=== PATIENT | female | born 1955 | race Caucasian/White ===

== ENCOUNTER → 2016-06-22 | Outpatient (CLI) | payer MEDICARE, OTHER ==
[~2016-06-22] MED LIST: ADVAIR 500/28 DISKU1 IH; ADVAIR DISKUS 51 DSK INH; ALBUTEROL0.09 MG/A4 IH; ANTIVERT PO; ASPIRIN E.C. 8181 M1 PO; CEFTIN250 M1 PO; CEFTIN500 MG PO; COUMADIN 5MG5 MG/TAB PO; CYCLOBENZAPRINE10 M2 PO; DIAZEPAM5 MG PO; FLOVENT DI50 MCG/Act IH; GOOD SENSE ASPI81 M1 PO; GUAIFEN AC 10120 ML PO; IBU-TAB800 MG PO; IBUPROFEN800 MG PO; IPRATROPIUM BROM3 M1 IH; LASIX40 MG PO; MIACALCIN NASA3.7 ML NS; MICRO-K 1010 MEQ PO; MIRALAX PA17 GM/Dose PO; MOTRIN 800800 MG/TAB PO; MUCINEX DM 30 M1 TE1 PO; NEXIUM40 MG PO; NITROGLYCERIN0.4 M1 SL; ONDANSETRON HYDR4 M1 PO; ONDANSETRON4 M1 PO; PERCOCET 325 MG1 TA2 PO; PERFOROMIS20 MCG/2 M IH; PHENERGAN W/CO120 M1 PO; PREDNISONE10 M1; PREDNISONE10 M1 PO; PREDNISONE20 M1 PO; PROAIR RESPICL90 MCG IH; PROVENTIL0.09 MG/Ac INH; PULMICORT R1 MG/2 ML IH; SINGULAIR10 MG PO; SPIRIVA HANDIH18 MCG IH; SPIRIVA INH IH; TESSALON P100 MG/CAP PO; TYLENOL WITH CO1 TA1 PO; VERAPAMIL HCL240 MG PO; VIBRAMYCIN100 MG PO; WELLBUTRIN PO; WELLBUTRIN SR150 MG PO; ZOCOR20 MG PO; ZOFRAN ODT4 MG PO; ZYRTEC10 M3 PO
== END ==
LOC: LAB 12:21
DX: I48.91 Unspecified atrial fibrillation (principal)

== ENCOUNTER → 2016-09-22 | Outpatient (CLI) | payer MEDICARE, OTHER ==
[2016-04-19 00:20] VITALS: BP 121/75
== END ==
LOC: LAB 13:44
DX: Z51.81 Encounter for therapeutic drug level monitoring (principal); Z79.01 Long term (current) use of anticoagulants; I48.0 Paroxysmal atrial fibrillation; E87.6 Hypokalemia

== ENCOUNTER → 2016-11-03 | Outpatient (CLI) | payer MEDICARE, OTHER ==
[2016-04-19 00:20] VITALS: BP 121/75
== END ==
LOC: RAD 15:26
DX: M54.6 Pain in thoracic spine (principal)

== ENCOUNTER → 2016-12-01 | Outpatient (CLI) | payer MEDICARE, OTHER ==
[2016-04-19 00:20] VITALS: BP 121/75
== END ==
LOC: LAB 14:04
DX: Z51.81 Encounter for therapeutic drug level monitoring (principal); Z79.01 Long term (current) use of anticoagulants; I48.0 Paroxysmal atrial fibrillation

== ENCOUNTER 2017-02-01 17:20 | Emergency (ER) | payer MEDICARE, OTHER ==
[~2017-02-01] VITALS: Ht 172.7 cm; Wt 67.7 kg
[~2017-02-01 17:20] MED LIST changes: -VERAPAMIL HCL240 MG PO; +VERAPAMIL180 MG/TAB PO
[2017-02-01] MEDS ORDERED: PERFOROMIS20 MCG/2 M IH (19:00)
[2017-02-01] MEDS ORDERED: NEURONTIN300 M1 PO (19:01)
[2017-02-01] MEDS ORDERED: PRILOSEC 20MG20 MG PO (19:01)
[2017-02-01] MEDS ORDERED: LEVAQUIN 750MG750 M1 PO (21:09)
[2017-02-01] MEDS ORDERED: FLAGYL500 M1 PO (21:09)
[2017-02-01] MEDS ORDERED: NORCO 325 MG-51 TA1 PO (21:10)
[2017-02-01] MEDS ORDERED: ZOFRAN4 M2 PO (21:26)
[2017-02-01 21:46] VITALS: BP 137/89
== END 2017-02-01 21:46 | disposition home or self-care (01) ==
LOC: ED 17:20
DX: K52.9 Noninfective gastroenteritis and colitis, unspecified (principal); I48.91 Unspecified atrial fibrillation; Z79.01 Long term (current) use of anticoagulants; F17.200 Nicotine dependence, unspecified, uncomplicated; R06.2 Wheezing; R00.0 Tachycardia, unspecified
CPT/HCPCS: A4353; J2405; J3010; J7030

== ENCOUNTER → 2017-02-14 | Outpatient (CLI) | payer MEDICARE, OTHER ==
[~2017-02-14] VITALS: Ht 172.7 cm; Wt 67.7 kg
[~2017-02-14] MED LIST changes: +FLAGYL500 M1 PO; +LEVAQUIN 750MG750 M1 PO; +NEURONTIN300 M1 PO; +NORCO 325 MG-51 TA1 PO; +PRILOSEC 20MG20 MG PO; +ZOFRAN4 M2 PO
[2017-02-14 15:10] LABS: HEMATOCRIT 42.7 % (37.0-47.0); HEMOGLOBIN 14.1 g/dL (12.5-16.0); RED BLOOD COUNT 4.96 M/mm3 (4.10-5.30); RED CELL DISTRIBUTION WIDTH 14.3 % (11.5-14.5); WHITE BLOOD COUNT 11.2 K/mm3 (4.8-10.8)
[2017-02-14 15:12] VITALS: BP 106/64
[2017-02-14 17:02] VITALS: BP 94/59
== END ==
LOC: AMSURD 14:45
PROVIDERS: Nurse Practitioner Family
DX: R11.0 Nausea (principal); K59.00 Constipation, unspecified; Z87.19 Personal history of other diseases of the digestive system
CPT/HCPCS: J2765; J7030

== ENCOUNTER → 2017-04-07 | Outpatient (CLI) | payer MEDICARE, OTHER ==
[2017-02-14 17:02] VITALS: BP 94/59
[2017-04-07 14:19] LABS: PROTHROMBIN TIME 15.9 SECONDS (9.0-12.0)
== END ==
LOC: LAB 13:47
PROVIDERS: Nurse Practitioner Family
DX: I48.0 Paroxysmal atrial fibrillation (principal)

== ENCOUNTER → 2017-04-19 | Outpatient (CLI) | payer MEDICARE, OTHER ==
[2017-02-14 17:02] VITALS: BP 94/59
[2017-04-19 17:07] LABS: PROTHROMBIN TIME 46.1 SECONDS (9.0-12.0)
== END ==
LOC: LAB 15:19
PROVIDERS: Nurse Practitioner Family
DX: I48.0 Paroxysmal atrial fibrillation (principal); Z88.0 Allergy status to penicillin; Z88.2 Allergy status to sulfonamides

== ENCOUNTER → 2017-06-07 | Outpatient (CLI) | payer MEDICARE, OTHER ==
[~2017-06-07] VITALS: Ht 172.7 cm; Wt 56.8 kg
[2017-06-07 15:15] VITALS: BP 134/79
[2017-06-07 16:02] VITALS: BP 132/86
[2017-06-07 16:15] VITALS: BP 124/82
[2017-06-07 16:28] LABS: ALBUMIN 3.9 g/dL (3.5-5.0); BUN/CREATININE RATIO 15.8 (6.0-26.0); CALCIUM 9.4 mg/dL (8.4-10.2); TOTAL BILIRUBIN 0.7 mg/dL (0.2-1.3); TOTAL PROTEIN 6.9 g/dL (6.3-8.2)
[2017-06-07 16:31] LABS: HEMATOCRIT 47.3 % (37.0-47.0); HEMOGLOBIN 15.2 g/dL (12.5-16.0); MEAN PLATELET VOLUME 10.3 fl (7.4-10.4); RED BLOOD COUNT 5.43 M/mm3 (4.10-5.30); WHITE BLOOD COUNT 9.5 K/mm3 (4.8-10.8)
[2017-06-07 16:54] LABS: POTASSIUM 2.9 mmol/L (3.6-5.0)
[2017-06-07 17:00] VITALS: BP 123/82
[2017-06-07 17:30] VITALS: BP 126/79
[2017-06-07 20:15] LABS: PROTHROMBIN TIME 40.5 SECONDS (9.0-12.0)
[2017-06-07 21:11] LABS: PH-URINE 5.5 (5.0 - 8.0); URINE APPEARANCE HAZY; URINE BILIRUBIN NEGATIVE (NEGATIVE); URINE BLOOD TRACE (NEGATIVE); URINE COLOR YELLOW; URINE GLUCOSE NEGATIVE (NEGATIVE); URINE KETONE NEGATIVE (NEGATIVE); URINE LEUKOCYTE ESTERASE TRACE (NEGATIVE); URINE NITRATE NEGATIVE (NEGATIVE); URINE PROTEIN(semi-quant) 1+ mg/dL (NEGATIVE); URINE UROBILINOGEN NORMAL (NORMAL)
[2017-06-07 21:13] LABS: URINE MUCUS PRESENT (NOT PRESENT)
== END ==
LOC: AMSURD 15:18
PROVIDERS: Nurse Practitioner Family
DX: K31.84 Gastroparesis (principal); I48.91 Unspecified atrial fibrillation; R63.4 Abnormal weight loss
CPT/HCPCS: J2765; J3490; J7030

== ENCOUNTER → 2017-06-09 | Outpatient (CLI) | payer MEDICARE, OTHER ==
[2017-06-07 17:30] VITALS: BP 126/79
[2017-06-09 10:44] LABS: BUN/CREATININE RATIO 10.8 (6.0-26.0); CALCIUM 8.7 mg/dL (8.4-10.2); POTASSIUM 3.6 mmol/L (3.6-5.0)
[2017-06-09 10:54] LABS: PROTHROMBIN TIME 24.1 SECONDS (9.0-12.0)
== END ==
LOC: LAB 10:15
PROVIDERS: Nurse Practitioner Family
DX: I48.0 Paroxysmal atrial fibrillation (principal); Z88.0 Allergy status to penicillin; Z88.2 Allergy status to sulfonamides

== ENCOUNTER 2017-11-01 15:39 | Observation (INO) | payer MEDICARE, OTHER ==
[~2017-11-01] VITALS: Ht 172.7 cm; Wt 60.1 kg
[2017-11-01] MEDS ORDERED: ASPIR LOW81 MG PO (16:02)
[2017-11-01] MEDS ORDERED: METOCLOPRAMIDE H5 M1 PO (16:03)
[2017-11-01] MEDS ORDERED: PROTONIX TR40 M1 PO (16:04)
[2017-11-01] MEDS ORDERED: MIRTAZAPINE7.5 M1 PO (16:05)
[2017-11-01 16:24] LABS: HEMATOCRIT 43.9 % (37.0-47.0); HEMOGLOBIN 14.1 g/dL (12.5-16.0); MEAN CELL VOLUME 86 fl (78-100); MEAN CORPUSCULAR HEMOGLOBIN 28 pg (27-31); MEAN CORPUSCULAR HGB CONC 32 g/dL (33-37); MEAN PLATELET VOLUME 9.8 fl (7.4-10.4); PLATELET COUNT 239 K/mm3 (130-400); RED BLOOD COUNT 5.12 M/mm3 (4.10-5.30); RED CELL DISTRIBUTION WIDTH 15.5 % (11.5-14.5); WHITE BLOOD COUNT 16.5 K/mm3 (4.8-10.8)
[2017-11-01 16:41] LABS: ALBUMIN 3.5 g/dL (3.5-5.0); ALT/SGPT 16 U/L (9-52); AST-SGOT 15 U/L (14-36); BUN/CREATININE RATIO 19.7 (6.0-26.0); CALCIUM 8.1 mg/dL (8.4-10.2); CARBON DIOXIDE 31 mmol/L (22-30); GLUCOSE 99 mg/dL (65-105); LIPASE 10 U/L (23-300); SODIUM 140 mmol/L (137-145); TOTAL BILIRUBIN 0.8 mg/dL (0.2-1.3); TOTAL PROTEIN 6.5 g/dL (6.3-8.2)
[2017-11-01 16:59] LABS: LYMPHOCYTE 11 % (20-51); MONOCYTE 5 % (3-10); NEUTROPHILS 82 % (42-75)
[2017-11-01 17:06] LABS: POTASSIUM 2.9 mmol/L (3.6-5.0)
[2017-11-01 17:58] LABS: PROTHROMBIN TIME 30.7 SECONDS (9.0-12.0)
[2017-11-01 18:59] LABS: PH-URINE 5.5 (5.0 - 8.0); URINE APPEARANCE HAZY; URINE BILIRUBIN NEGATIVE (NEGATIVE); URINE COLOR YELLOW; URINE GLUCOSE NEGATIVE (NEGATIVE); URINE KETONE 1+ (NEGATIVE); URINE PROTEIN(semi-quant) TRACE mg/dL (NEGATIVE); URINE UROBILINOGEN NORMAL (NORMAL)
[2017-11-01 19:00] LABS: URINE BLOOD TRACE (NEGATIVE); URINE LEUKOCYTE ESTERASE 1+ (NEGATIVE); URINE NITRATE POSITIVE (NEGATIVE)
[2017-11-01 23:21] VITALS: BP 98/58
[2017-11-01 23:27] VITALS: BP 98/58
[2017-11-02 03:07] VITALS: BP 92/56
[2017-11-02 06:44] VITALS: BP 99/62
[2017-11-02 08:18] LABS: HEMATOCRIT 34.2 % (37.0-47.0); HEMOGLOBIN 10.9 g/dL (12.5-16.0); RED BLOOD COUNT 3.87 M/mm3 (4.10-5.30); RED CELL DISTRIBUTION WIDTH 15.2 % (11.5-14.5); WHITE BLOOD COUNT 8.5 K/mm3 (4.8-10.8)
[2017-11-02 08:39] LABS: BUN/CREATININE RATIO 14.8 (6.0-26.0); CALCIUM 7.2 mg/dL (8.4-10.2); POTASSIUM 3.4 mmol/L (3.6-5.0)
[2017-11-02 10:54] VITALS: BP 104/69
[2017-11-02 15:39] VITALS: BP 108/70
[2017-11-02 18:20] VITALS: BP 106/72
[2017-11-02 23:00] VITALS: BP 127/76
[2017-11-03 02:41] VITALS: BP 116/74
[2017-11-03 06:32] VITALS: BP 98/65
[2017-11-03 09:33] LABS: BASO # 0.1 (0.02-0.10); EOS # 0.3 (0.04-0.40); EOS % 4.2 % (1.0-5.0); HEMATOCRIT 45.9 % (37.0-47.0); HEMOGLOBIN 14.8 g/dL (12.5-16.0); MEAN CELL VOLUME 87 fl (78-100); MEAN CORPUSCULAR HEMOGLOBIN 28 pg (27-31); MEAN CORPUSCULAR HGB CONC 32 g/dL (33-37); MEAN PLATELET VOLUME 10.3 fl (7.4-10.4); MONO # 0.5 (0.20-0.80); NEU # 4.3 (1.40-6.50); PLATELET COUNT 175 K/mm3 (130-400); RED BLOOD COUNT 5.27 M/mm3 (4.10-5.30); RED CELL DISTRIBUTION WIDTH 15.2 % (11.5-14.5); WHITE BLOOD COUNT 7.1 K/mm3 (4.8-10.8)
[2017-11-03 09:48] LABS: BUN/CREATININE RATIO 4.7 (6.0-26.0); CALCIUM 7.9 mg/dL (8.4-10.2); POTASSIUM 3.7 mmol/L (3.6-5.0)
[2017-11-03 09:50] LABS: PH-URINE 6.5 (5.0 - 8.0); URINE APPEARANCE CLEAR; URINE BILIRUBIN NEGATIVE (NEGATIVE); URINE BLOOD 50 ery/uL (NEGATIVE); URINE COLOR YELLOW; URINE GLUCOSE NEGATIVE (NEGATIVE); URINE KETONE 2+ (NEGATIVE); URINE LEUKOCYTE ESTERASE NEGATIVE (NEGATIVE); URINE MUCUS PRESENT (NOT PRESENT); URINE NITRATE NEGATIVE (NEGATIVE); URINE PROTEIN(semi-quant) TRACE mg/dL (NEGATIVE); URINE UROBILINOGEN NORMAL (NORMAL)
[2017-11-03] MEDS ORDERED: CIPRO 500MG TA500 MG PO (10:17)
[2017-11-03] MEDS ORDERED: FLAGYL500 M1 PO (10:18)
[2017-11-03] MEDS ORDERED: NORCO 325 MG-51 TA1 PO (10:19)
[2017-11-03] MEDS ORDERED: COMPAZINE10 M2 PO (10:20)
== END 2017-11-03 10:52 | disposition home or self-care (01) ==
LOC: ED 15:39 → MED/SURG 22:23
PROVIDERS: Physician Assistant; ADMIT Nurse Practitioner Family
DX: K50.10 Crohn's disease of large intestine without complications (principal); N30.00 Acute cystitis without hematuria; E87.6 Hypokalemia; R11.0 Nausea; J44.9 Chronic obstructive pulmonary disease, unspecified; Z79.01 Long term (current) use of anticoagulants; Z79.82 Long term (current) use of aspirin; Z79.899 Other long term (current) drug therapy; I95.9 Hypotension, unspecified; I48.91 Unspecified atrial fibrillation; F17.200 Nicotine dependence, unspecified, uncomplicated; Z90.49 Acquired absence of other specified parts of digestive tract
CPT/HCPCS: C9113; G0378; J0744; J1885; J2405; J2550; J3010; J3490; J7030; Q9967

== ENCOUNTER 2017-12-01 15:16 | Emergency (ER) | payer MEDICARE, OTHER ==
[~2017-12-01] VITALS: Ht 172.7 cm; Wt 59.5 kg
[~2017-12-01 15:16] MED LIST changes: +ASPIR LOW81 MG PO; +CIPRO 500MG TA500 MG PO; +COMPAZINE10 M2 PO; +METOCLOPRAMIDE H5 M1 PO; +MIRTAZAPINE7.5 M1 PO; +PROTONIX TR40 M1 PO
[2017-12-01 15:41] LABS: EOS # 0.1 (0.04-0.40); EOS % 1.4 % (1.0-5.0); HEMOGLOBIN 13.8 g/dL (12.5-16.0); LYMPH# 2.2 (1.50-4.00); MEAN CELL VOLUME 87 fl (78-100); MEAN CORPUSCULAR HEMOGLOBIN 28 pg (27-31); MEAN CORPUSCULAR HGB CONC 32 g/dL (33-37); MEAN PLATELET VOLUME 9.3 fl (7.4-10.4); MONO # 0.7 (0.20-0.80); PLATELET COUNT 275 K/mm3 (130-400); RED BLOOD COUNT 4.95 M/mm3 (4.10-5.30)
[2017-12-01 16:01] LABS: ALBUMIN 3.8 g/dL (3.5-5.0); BUN/CREATININE RATIO 18.1 (6.0-26.0); CALCIUM 9.9 mg/dL (8.4-10.2); POTASSIUM 3.8 mmol/L (3.6-5.0); TOTAL BILIRUBIN 0.5 mg/dL (0.2-1.3); TOTAL PROTEIN 6.7 g/dL (6.3-8.2)
[2017-12-01 16:31] LABS: PROTHROMBIN TIME 40.9 SECONDS (9.0-12.0)
[2017-12-01 16:52] LABS: ERYTHROCYTE SEDIMENTATION RATE 20 mm/hr (0-30)
[2017-12-01 18:02] LABS: LIPASE 36 U/L (23-300)
[2017-12-01] MEDS ORDERED: PERCOCET 325 MG1 TA2 PO (18:04)
[2017-12-01] MEDS ORDERED: ULTRAM50 M1 PO (18:04)
[2017-12-01] MEDS ORDERED: ZOFRAN ODT8 M1 PO (18:06)
[2017-12-01] MEDS ORDERED: PHENERGAN 25 TA25 MG PO (18:06)
[2017-12-01 18:30] VITALS: BP 135/93
== END 2017-12-01 18:30 | disposition home or self-care (01) ==
LOC: ED 15:16
PROVIDERS: Nurse Practitioner Family; Nurse Practitioner Primary Care
DX: R10.9 Unspecified abdominal pain (principal); Z90.49 Acquired absence of other specified parts of digestive tract; R53.81 Other malaise; Z87.19 Personal history of other diseases of the digestive system
CPT/HCPCS: J2270; J2405; J7030; Q9967

== ENCOUNTER 2018-07-26 08:20 | Outpatient (RCR) | payer MEDICARE, OTHER ==
[~2018-07-26 08:20] MED LIST changes: +PHENERGAN 25 TA25 MG PO; +ULTRAM50 M1 PO; +ZOFRAN ODT8 M1 PO
== END 2018-07-28 15:22 | disposition home or self-care (01) ==
LOC: OPPGERO 08:20 → PT 07-27 14:00 → OPPGERO 07-28 15:22
DX: F33.2 Major depressive disorder, recurrent severe without psychotic features (principal); I48.0 Paroxysmal atrial fibrillation; F41.9 Anxiety disorder, unspecified; J44.9 Chronic obstructive pulmonary disease, unspecified; Z79.01 Long term (current) use of anticoagulants; I10 Essential (primary) hypertension; I71.4 Abdominal aortic aneurysm, without rupture

== ENCOUNTER 2018-07-31 09:25 | Outpatient (RCR) | payer MEDICARE, OTHER ==
[2018-08-17] MEDS ORDERED: PROAIR HFA0.09 MG/AC IH (13:55)
[2018-08-17] MEDS ORDERED: REMERON15 MG PO (13:55)
[2018-08-17] MEDS ORDERED: PREDNISONE20 M1 PO (13:57)
[2018-08-17] MEDS ORDERED: PREDNISONE10 MG PO (13:58)
== END 2018-08-29 14:37 ==
LOC: OPPGERO 09:25
DX: F33.2 Major depressive disorder, recurrent severe without psychotic features (principal); I48.0 Paroxysmal atrial fibrillation; F41.9 Anxiety disorder, unspecified; J44.9 Chronic obstructive pulmonary disease, unspecified; I10 Essential (primary) hypertension; I71.4 Abdominal aortic aneurysm, without rupture

== ENCOUNTER 2018-07-31 13:00 | Outpatient (RCR) | payer MEDICARE, OTHER | END 2018-07-31 13:30 | LOC: PT 13:00 | DX: F33.2 Major depressive disorder, recurrent severe without psychotic features (principal); F41.8 Other specified anxiety disorders; F42.9 Obsessive-compulsive disorder, unspecified; G31.84 Mild cognitive impairment of uncertain or unknown etiology; M79.601 Pain in right arm; M79.602 Pain in left arm; M75.00 Adhesive capsulitis of unspecified shoulder ==

== ENCOUNTER → 2018-08-01 | Outpatient (CLI) | payer MEDICARE, OTHER ==
[2018-08-01 16:30] LABS: EOS # 0.3 (0.04-0.40); EOS % 2.2 % (1.0-5.0); HEMATOCRIT 45.3 % (37.0-47.0); HEMOGLOBIN 14.1 g/dL (12.5-16.0); LYMPH# 3.3 (1.50-4.00); MEAN CELL VOLUME 87 fl (78-100); MEAN CORPUSCULAR HEMOGLOBIN 27 pg (27-31); MEAN CORPUSCULAR HGB CONC 31 g/dL (33-37); MEAN PLATELET VOLUME 8.8 fl (7.4-10.4); PLATELET COUNT 365 K/mm3 (130-400); RED BLOOD COUNT 5.23 M/mm3 (4.10-5.30); RED CELL DISTRIBUTION WIDTH 15.1 % (11.5-14.5); WHITE BLOOD COUNT 14.7 K/mm3 (4.8-10.8)
[2018-08-01 16:33] LABS: ALBUMIN 4.1 g/dL (3.5-5.0); CALCIUM 9.1 mg/dL (8.4-10.2); POTASSIUM 3.4 mmol/L (3.6-5.0); TOTAL BILIRUBIN 0.4 mg/dL (0.2-1.3); TOTAL PROTEIN 7.3 g/dL (6.3-8.2)
[2018-08-01 16:58] LABS: NEU # 10.1 (1.40-6.50)
== END ==
LOC: LAB 15:52
PROVIDERS: Physician Assistant
DX: M85.88 Other specified disorders of bone density and structure, other site (principal); J44.1 Chronic obstructive pulmonary disease with (acute) exacerbation; R06.00 Dyspnea, unspecified

== ENCOUNTER → 2018-08-08 | Outpatient (CLI) | payer MEDICARE, OTHER ==
[2018-08-08 15:06] LABS: CALCIUM 9.2 mg/dL (8.4-10.2); POTASSIUM 4.3 mmol/L (3.6-5.0)
[2018-08-08 15:15] LABS: PROTHROMBIN TIME 26.8 SECONDS (9.0-12.0)
== END ==
LOC: LAB 14:39
PROVIDERS: Physician Assistant
DX: J44.1 Chronic obstructive pulmonary disease with (acute) exacerbation (principal); Z79.01 Long term (current) use of anticoagulants

== ENCOUNTER 2018-08-17 13:37 | Emergency (ER) | payer MEDICARE, OTHER ==
[2018-08-17] MEDS ORDERED: REMERON15 MG PO (13:55)
[2018-08-17] MEDS ORDERED: PROAIR HFA0.09 MG/AC IH (13:55)
[2018-08-17] MEDS ORDERED: PREDNISONE20 M1 PO (13:57)
[2018-08-17] MEDS ORDERED: PREDNISONE10 MG PO (13:58)
[2018-08-17 14:33] LABS: HEMATOCRIT 40.6 % (37.0-47.0); HEMOGLOBIN 12.4 g/dL (12.5-16.0); MEAN CELL VOLUME 87 fl (78-100); MEAN CORPUSCULAR HEMOGLOBIN 27 pg (27-31); MEAN CORPUSCULAR HGB CONC 31 g/dL (33-37); MEAN PLATELET VOLUME 9.1 fl (7.4-10.4); PLATELET COUNT 263 K/mm3 (130-400); RED BLOOD COUNT 4.68 M/mm3 (4.10-5.30); RED CELL DISTRIBUTION WIDTH 15.3 % (11.5-14.5); WHITE BLOOD COUNT 10.9 K/mm3 (4.8-10.8)
[2018-08-17 14:42] LABS: ALBUMIN 3.9 g/dL (3.5-5.0); CALCIUM 8.9 mg/dL (8.4-10.2); POTASSIUM 3.9 mmol/L (3.6-5.0); TOTAL BILIRUBIN 0.4 mg/dL (0.2-1.3); TOTAL PROTEIN 6.6 g/dL (6.3-8.2)
[2018-08-17 14:56] LABS: TROPONIN-I < 0.03 ng/mL (0.00-0.06)
[2018-08-17 15:02] LABS: LYMPHOCYTE 3 % (20-51); MONOCYTE 2 % (3-10); NEUTROPHILS 95 % (42-75)
[2018-08-17 15:13] LABS: D-DIMER 0.03 mg/L FEU (0.15-0.50)
[2018-08-17 16:47] VITALS: BP 136/79
[2018-08-17 16:53] LABS: PROTHROMBIN TIME 38.1 SECONDS (9.0-12.0)
== END 2018-08-17 16:42 | disposition short-term general hospital (02) ==
LOC: ED 13:37
PROVIDERS: Nurse Practitioner Family
DX: J44.1 Chronic obstructive pulmonary disease with (acute) exacerbation (principal); I48.91 Unspecified atrial fibrillation; R79.1 Abnormal coagulation profile; I10 Essential (primary) hypertension; J30.1 Allergic rhinitis due to pollen; K21.9 Gastro-esophageal reflux disease without esophagitis; G89.29 Other chronic pain; G54.9 Nerve root and plexus disorder, unspecified; F41.9 Anxiety disorder, unspecified; F17.210 Nicotine dependence, cigarettes, uncomplicated; Z79.51 Long term (current) use of inhaled steroids; Z79.01 Long term (current) use of anticoagulants; Z79.82 Long term (current) use of aspirin; Z90.49 Acquired absence of other specified parts of digestive tract; Z90.710 Acquired absence of both cervix and uterus; Z86.79 Personal history of other diseases of the circulatory system
CPT/HCPCS: J1956; J2930; J7030

== ENCOUNTER 2018-08-30 08:42 | Outpatient (RCR) | payer MEDICARE, OTHER ==
[~2018-08-30 08:42] MED LIST changes: -BENZONATATE100 M2 PO; -COUMADIN 22.5 MG/TAB PO; -LAMOTRIGINE25 M1 PO; -PERFOROMIS20 MCG/21 IH; -PREDNISONE20 MG PO; -PULMICORT0.5 MG/2 M IH; -RT ADVAIR HFA 1112 G IH; -TAZTIA XT120 MG PO; -TESSALON PERLE100 M1 PO; -TIAZAC120 MG PO
[2018-08-31] MEDS ORDERED: RT ADVAIR HFA 1112 G IH ×2 (16:13→19:29)
[2018-08-31] MEDS ORDERED: BENZONATATE100 M2 PO (16:13)
[2018-08-31] MEDS ORDERED: TAZTIA XT120 MG PO (16:40)
[2018-08-31] MEDS ORDERED: LAMOTRIGINE25 M1 PO ×2 (16:40→20:10)
[2018-08-31] MEDS ORDERED: REMERON15 MG PO (19:26)
[2018-08-31] MEDS ORDERED: COUMADIN 22.5 MG/TAB PO (19:27)
[2018-08-31] MEDS ORDERED: COUMADIN 5MG5 MG/TAB PO (19:27)
[2018-08-31] MEDS ORDERED: TIAZAC120 MG PO (19:28)
[2018-08-31] MEDS ORDERED: PREDNISONE20 MG PO (19:30)
[2018-08-31] MEDS ORDERED: TESSALON PERLE100 M1 PO (19:34)
[2018-08-31] MEDS ORDERED: PULMICORT0.5 MG/2 M IH (20:40)
[2018-08-31] MEDS ORDERED: IPRATROPIUM BROM3 M1 IH (20:40)
[2018-08-31] MEDS ORDERED: PERFOROMIS20 MCG/21 IH (20:41)
[2018-09-14] MEDS ORDERED: COUMADIN 3MG3 MG/TAB PO (09:00)
[2018-09-14] MEDS ORDERED: CARDIZEM CD180 M1 PO (09:00)
[2018-09-14] MEDS ORDERED: FUROSEMIDE40 MG PO (09:01)
[2018-09-14] MEDS ORDERED: K-TAB20 MEQ PO (09:01)
[2018-09-14] MEDS ORDERED: THEOPHYLLINE400 M1 PO (09:03)
[2018-09-14] MEDS ORDERED: XOPENEX 3 ML3 M3 IH (09:04)
[2018-09-14] MEDS ORDERED: PREDNISONE20 MG PO (09:07)
== END 2018-09-29 13:33 ==
LOC: OPPGERO 08:42
DX: F33.2 Major depressive disorder, recurrent severe without psychotic features (principal); Z79.01 Long term (current) use of anticoagulants

== ENCOUNTER → 2018-08-30 | Outpatient (CLI) | payer MEDICARE, OTHER ==
[2018-08-17 16:47] VITALS: BP 136/79
[~2018-08-30] MED LIST changes: +BENZONATATE100 M2 PO; +COUMADIN 22.5 MG/TAB PO; +LAMOTRIGINE25 M1 PO; +PERFOROMIS20 MCG/21 IH; +PREDNISONE10 MG PO; +PREDNISONE20 MG PO; +PROAIR HFA0.09 MG/AC IH; +PULMICORT0.5 MG/2 M IH; +REMERON15 MG PO; +RT ADVAIR HFA 1112 G IH; +TAZTIA XT120 MG PO; +TESSALON PERLE100 M1 PO; +TIAZAC120 MG PO
[2018-08-30 14:13] LABS: PROTHROMBIN TIME 35.5 SECONDS (9.0-12.0)
== END ==
LOC: LAB 13:28
PROVIDERS: Physician Assistant
DX: J44.1 Chronic obstructive pulmonary disease with (acute) exacerbation (principal); Z79.01 Long term (current) use of anticoagulants

== ENCOUNTER 2018-08-31 15:57 | Emergency (ER) | payer MEDICARE, OTHER ==
[~2018-08-31] VITALS: Wt 69.0 kg
[2018-08-31] MEDS ORDERED: RT ADVAIR HFA 1112 G IH ×2 (16:13→19:29)
[2018-08-31] MEDS ORDERED: BENZONATATE100 M2 PO (16:13)
[2018-08-31 16:40] LABS: HEMATOCRIT 38.2 % (37.0-47.0); HEMOGLOBIN 11.6 g/dL (12.5-16.0); MEAN CELL VOLUME 87 fl (78-100); MEAN CORPUSCULAR HEMOGLOBIN 26 pg (27-31); MEAN CORPUSCULAR HGB CONC 30 g/dL (33-37); PLATELET COUNT 199 K/mm3 (130-400); RED BLOOD COUNT 4.41 M/mm3 (4.10-5.30); RED CELL DISTRIBUTION WIDTH 16.1 % (11.5-14.5); WHITE BLOOD COUNT 12.7 K/mm3 (4.8-10.8)
[2018-08-31] MEDS ORDERED: LAMOTRIGINE25 M1 PO ×2 (16:40→20:10)
[2018-08-31] MEDS ORDERED: TAZTIA XT120 MG PO (16:40)
[2018-08-31 16:51] LABS: ALBUMIN 3.7 g/dL (3.5-5.0); CALCIUM 8.9 mg/dL (8.4-10.2); POTASSIUM 3.8 mmol/L (3.6-5.0); TOTAL BILIRUBIN 0.5 mg/dL (0.2-1.3)
[2018-08-31 16:57] LABS: D-DIMER 0.22 mg/L FEU (0.15-0.50)
[2018-08-31 16:58] LABS: TROPONIN-I < 0.03 ng/mL (0.00-0.06)
[2018-08-31 17:05] LABS: PROTHROMBIN TIME 32.5 SECONDS (9.0-12.0)
[2018-08-31 17:30] LABS: MONOCYTE 1 % (3-10); NEUTROPHILS 99 % (42-75)
[2018-08-31 17:49] LABS: PH-URINE 5.5 (5.0 - 8.0); URINE APPEARANCE HAZY; URINE BILIRUBIN NEGATIVE (NEGATIVE); URINE BLOOD TRACE (NEGATIVE); URINE COLOR YELLOW; URINE GLUCOSE 50 mg/dL mg/dL (NEGATIVE); URINE KETONE NEGATIVE (NEGATIVE); URINE NITRATE NEGATIVE (NEGATIVE); URINE PROTEIN(semi-quant) TRACE mg/dL (NEGATIVE); URINE UROBILINOGEN NORMAL (NORMAL)
[2018-08-31 17:50] LABS: URINE LEUKOCYTE ESTERASE NEGATIVE (NEGATIVE); URINE WBC 0-1 /hpf (0-3)
[2018-08-31 17:56] VITALS: BP 156/84
[2018-08-31] MEDS ORDERED: REMERON15 MG PO (19:26)
[2018-08-31] MEDS ORDERED: COUMADIN 22.5 MG/TAB PO (19:27)
[2018-08-31] MEDS ORDERED: COUMADIN 5MG5 MG/TAB PO (19:27)
[2018-08-31] MEDS ORDERED: TIAZAC120 MG PO (19:28)
[2018-08-31] MEDS ORDERED: PREDNISONE20 MG PO (19:30)
[2018-08-31] MEDS ORDERED: TESSALON PERLE100 M1 PO (19:34)
[2018-08-31] MEDS ORDERED: PULMICORT0.5 MG/2 M IH (20:40)
[2018-08-31] MEDS ORDERED: IPRATROPIUM BROM3 M1 IH (20:40)
[2018-08-31] MEDS ORDERED: PERFOROMIS20 MCG/21 IH (20:41)
== END 2018-08-31 17:38 | disposition home or self-care (01) ==
LOC: ED 15:57
PROVIDERS: Nurse Practitioner Family
DX: J44.1 Chronic obstructive pulmonary disease with (acute) exacerbation (principal); R09.02 Hypoxemia; I48.91 Unspecified atrial fibrillation; I10 Essential (primary) hypertension; E07.9 Disorder of thyroid, unspecified; K22.70 Barrett's esophagus without dysplasia; J30.1 Allergic rhinitis due to pollen; K21.9 Gastro-esophageal reflux disease without esophagitis; G89.29 Other chronic pain; M54.9 Dorsalgia, unspecified; F17.210 Nicotine dependence, cigarettes, uncomplicated; Z79.01 Long term (current) use of anticoagulants; Z79.82 Long term (current) use of aspirin; Z79.51 Long term (current) use of inhaled steroids; Z87.442 Personal history of urinary calculi; Z90.49 Acquired absence of other specified parts of digestive tract; Z86.79 Personal history of other diseases of the circulatory system
CPT/HCPCS: J2930; J7030